=== PATIENT | female | born 1935 | race Caucasian/White ===

== ENCOUNTER 2017-02-21 09:26 | Emergency (ER) | payer OTHER ==
[~2017-02-21] VITALS: Ht 167.6 cm; Wt 60.0 kg
[2017-02-21 09:35] VITALS: BP 101/61; PULSE 92; RESP 22; TEMP 98.2; O2SAT 89
[2017-02-21] MEDS ORDERED: ATOR10TA15 PO (09:47)
[2017-02-21] MEDS ORDERED: MIRT1TAB PO (09:47)
[2017-02-21] MEDS ORDERED: PRED10 PO (09:47)
[2017-02-21] MEDS ORDERED: TIZA2CAP3 PO (09:47)
[2017-02-21] MEDS ORDERED: O2 (09:47)
[2017-02-21] MEDS ORDERED: DILT300C3 PO (09:47)
[2017-02-21 10:13] VITALS: BP 101/60; PULSE 87; RESP 20; TEMP 98.2; O2SAT 92
[2017-02-21] MEDS ORDERED: ACETAMINOPHEN/HYDROcodone 325 MG/5 MG TAB PO ONE (10:15)
--- NOTE | 2017-02-21 10:17 | PD ---
HPI Chief Complaint: Pain: Acute or Chronic Time Seen by Provider: 10:08 Travel History International Travel<30 days: No Contact w/Intl Traveler<30days: No Traveled to known affect area: No History of Present Illness HPI 81-year-old female presents to the ER today brought in by family because she states that she had lost her balance on her walker, fell backward in the dining room chair hitting her back about for 5 days ago. She is here because she is continuing to have pain on her back and it hurts to move and breathe. She denies any fevers, coughing, loss of consciousness, head injury, or any other symptoms. Pain is currently rated an 8 out of 10 on the right upper back area. Modifying Factors: Worse with movements and deep breaths Associated Signs & Symptoms: Fall, right upper back pain Risk Factors: Elderly PFSH Past Medical History Hx Anticoagulant Therapy: No Cardiovascular Problems: Yes (CHOL, HTN) High Cholesterol: Yes COPD: Yes Diabetes: No Diminished Hearing: Yes Hypertension: Yes Respiratory: Yes (COPD) Tetanus Vaccination: Unknown ?: Not Past Surgical History Gynecologic Surgery: Yes (BILAT. MASTECTOMY) Hysterectomy: Yes Social History Alcohol Use: Yes (VERY RARE) Tobacco Use: No Substance Use: No Allergies-Medications (Allergen,Severity, Reaction): Coded Allergies: No Known Allergies (Unverified , 02/21/17) Reported Meds & Prescriptions Reported Meds & Active Scripts Active Reported [O2] Prednisone 10 Mg Tab 10 Mg PO DAILY Tizanidine (Tizanidine HCl) 2 Mg Cap 2 Mg PO TID Atorvastatin (Atorvastatin Calcium) 10 Mg Tab 10 Mg PO HS Diltiazem CD 24 HR 300 Mg Caper 300 Mg PO DAILY Mirtazapine 7.5 Mg Tab 7.5 Mg PO HS Review of Systems Except as stated in HPI: all other systems reviewed are Neg Physical Exam Narrative GENERAL: Well-developed elderly white female patient currently in mild distress. Awake and oriented 3. SKIN: Focused skin assessment warm/dry. HEAD: Atraumatic. Normocephalic. EYES: Pupils equal and round. No scleral icterus. No injection or drainage. ENT: No nasal bleeding or discharge. Mucous membranes pink and moist. NECK: Trachea midline. No JVD. CARDIOVASCULAR: Regular rate and rhythm. No murmur appreciated. RESPIRATORY: No accessory muscle use. Clear to auscultation. Breath sounds equal bilaterally. GASTROINTESTINAL: Abdomen soft, non-tender, nondistended. Hepatic and splenic margins not palpable. MUSCULOSKELETAL: No obvious deformities. No clubbing. No cyanosis. No edema. BACK: No CVA tenderness. No rash. There is notable ecchymosis to the right posterior chest wall with tenderness to palpation. NEUROLOGICAL: Awake and alert. No obvious cranial nerve deficits. Motor grossly within normal limits. Normal speech. PSYCHIATRIC: Appropriate mood and affect; insight and judgment normal. Data Data Last Documented VS Vital Signs Date Time Temp Pulse Resp B/P Pulse Ox O2 Delivery O2 Flow Rate FiO2 02/21/17 10:13 98.2 87 20 101/60 92 Nasal Cannula 2 Orders Ribs, Uni (W/Exp Cxr-Min 3vw) (02/21/17 10:08) Acetamin-Hydrocod 325-5 Mg (Vernal 5-325 (02/21/17 10:15) MDM Medical Decision Making Medical Screen Exam Complete: Yes Emergency Medical Condition: Yes Medical Record Reviewed: Yes Differential Diagnosis Chest wall contusion versus rib fracture versus pneumonia Narrative Course X-ray did not show any signs of acute pulmonary contusions or signs of rib fractures. At this point, symptoms are likely secondary to rib contusions and my plan would be to give her symptomatically relief or pain. She has low saturations in the ER 93% but patient is on home O2 and this likely is baseline for her. Return for any worsening in pain, fevers, difficulty breathing, and as needed. The plan has been discussed with her and she states understanding. Diagnosis Primary Impression: Rib contusion Med/Other Pt SpecificInfo: Prescription(s) given Scripts Hydrocodone-Acetaminophen (Lortab)5-325 Mg Tab1-2 Tab PO Q6H PRN (PAIN) #20 TAB Ref 0 Prov:Katey Oneill MD 02/21/17 Disposition: 01 DISCHARGE HOME Condition: Stable Katey Oneill MD Feb 21, 2017 10:17
--- NOTE | 2017-02-21 11:01 | RADRPT ---
EXAM DATE/TIME: 02/21/2017 10:11 [facility] COMPARISON: No previous studies available for comparison. INDICATIONS : Fall, right side rib pain, cough, short of breath. MEDICAL HISTORY : Chronic obstructive pulmonary disease. SURGICAL HISTORY : None. ENCOUNTER: Initial ACUITY: 4 - 6 days PAIN SCORE: 6/10 LOCATION: Right lateral ribs FINDINGS: Multiple views of the right ribs were performed. There is no evidence of displaced fracture. No miguel tructive lesions or areas of periosteal thickening are seen. Expiratory view of the chest is negativ e for pneumothorax. The mediastinal structures are midline. CONCLUSION: Unremarkable examination of the right ribs and chest. Anjel Martin MD on February 21, 2017 at 10:59 Board Certified Radiologist. This report was verified electronically.
[2017-02-21] MEDS ORDERED: HYDR-3533 PO (11:12)
[2017-03-03] MEDS ORDERED: NYST1000 SWISH-SWAL (17:20)
[2017-03-03] MEDS ORDERED: AUGM875T3 PO (17:20)
[2017-03-03] MEDS ORDERED: IPRASOL INH (17:20)
[2017-03-03] MEDS ORDERED: VENTAER INH (17:20)
== END 2017-02-21 11:42 | disposition home or self-care (01) ==
LOC: PHED 09:26
DX: S20.219A Contusion of unspecified front wall of thorax, initial encounter (principal); W07.XXXA Fall from chair, initial encounter
CPT/HCPCS: 71101; 99283